=== PATIENT | male | born 1940 | race African-American/Black ===

== ENCOUNTER 2016-11-15 22:13 | Observation (INO) | payer MEDICARE, OTHER ==
[~2016-11-15] VITALS: Ht 175.3 cm; Wt 59.1 kg
[~2016-11-15 22:13] MED LIST: ADJUST ALUMINUM1 MI1; HYDR-3533 PO; IBUP-232 PO; MEDR4PAK PO; MULTTAB67 PO; NAPR500 PO; OMEP20TA PO; ROBA750T PO; [UNRECOGNIZED DRUG - CODE] PO
[2016-11-15 22:15] VITALS: BP 178/79; PULSE 67; RESP 16; TEMP 97.9; O2SAT 98
[2016-11-16] VITALS (7 sets, daily range): BP systolic 135–169; BP diastolic 69–87; PULSE 66–89; RESP 17–18; TEMP 95.8–98.7; O2SAT 91–99
[2016-11-16] MEDS ORDERED: ONDANSETRON HCL 4 MG/2 ML VIAL IV ONE (02:15)
[2016-11-16] MEDS ORDERED: HYDROmorphone HCL PF 1 MG/ML VIAL IV PUSH ONE (02:15)
[2016-11-16] MEDS ORDERED: SODIUM CHLOR 0.9% 1000 ML INJ 1,000 ML IV ONE (02:15)
--- NOTE | 2016-11-16 02:25 | PD ---
HPI Chief Complaint: GI Complaint Time Seen by Provider: 01:17 Travel History International Travel<30 days: No Contact w/Intl Traveler<30days: No Traveled to known affect area: No History of Present Illness HPI The patient is a 76 year old male who presents to the [facility] emergency department with a history of abdominal pain that reportedly began 2 days ago. He reports that the pain has been constant and is in the right upper quadrant of the abdomen and midepigastric area. He reports that he's had nausea and vomiting too many times to count over the last 24 hours. He denies having any diarrhea. His last bowel movement was earlier today. He denies having any blood in his stool or black or tarry stools. He denies ever having colonoscopy previously. He reports that he's had a subjective fever. He denies having any chest pain, chest pressure, or shortness of breath. The patient does report that he continues to smoke 4 cigarettes per day and does have a history of COPD. He also drinks 2-1/2 beers daily. The patient denies ever having a pain like this previously. He denies ever having a history of pancreatitis. The patient denies any recent fevers cough, congestion, neck pain, urinary symptoms , or neurologic symptoms. [facility] Past Medical History Narrative Medical The patient's past medical history is significant for seizure disorder, anxiety disorder, acid reflux, arthritis, COPD, chronic back pain, tobacco abuse, daily alcohol use. The patient reports that his primary care physician is Dr. Cano. Arthritis: Yes Asthma: No Atrial Fibrillation: No Blood Disorders: No Anxiety: Yes Depression: No Cancer: No Cardiovascular Problems: No Chemotherapy: No Chest Pain: No Congestive Heart Failure: No COPD: Yes Cerebrovascular Accident: No Coronary Artery Disease: No Diabetes: No Diminished Hearing: No Endocrine: Yes Gastrointestinal Disorders: Yes (GERD) GERD: Yes Genitourinary: No Hypertension: Yes Immune Disorder: No Musculoskeletal: Yes (chronic back pain) Neurologic: No Psychiatric: No Reproductive: No Respiratory: Yes Immunizations Current: Yes Radiation Therapy: No Seizures: Yes (LAST SEIZURE 2002) Sleep Apnea: No Thyroid Disease: No Past Surgical History Narrative Surgical The patient's past surgical history is significant for left knee surgery in 1963. Surgical History: No Previous Surgery Other Surgery: No Social History Alcohol Use: Yes (3-5 BEERS EVERY OTHER DAY PER PATIENT) Tobacco Use: Yes (4-5 CIGS PER DAY) Substance Use: No Allergies-Medications (Allergen,Severity, Reaction): Coded Allergies: Chicken Meat (Verified Allergy, Unknown, 11/16/16) Chicken-Derived Products (Verified Allergy, Unknown, 11/16/16) Aspirin (Verified Adverse Reaction, Intermediate, UPSET STOMACH, 11/16/16) Reported Meds & Prescriptions Reported Meds & Active Scripts Active Adjust Aluminum Cane/Roun (Device) 1 Mis Mis 1 Ea .ROUTE DIRECTED Ibuprofen 600 Mg Tab 600 Mg PO Q6H PRN Reported Naprosyn (Naproxen) 500 Mg Tab 500 Mg PO BID Omeprazole 20 Mg Tab 20 Mg PO DAILY Multiple Vitamin 1 Tab 1 Tab PO DAILY Robaxin (Methocarbamol) 750 Mg Tab 750 Mg PO Q4H Lortab (Hydrocodone-Acetaminophen) 5-325 Mg Tab 1 Tab PO Q6H PRN Lodine (Etodolac) 400 Mg Tab 400 Mg PO BID Review of Systems Except as stated in HPI: all other systems reviewed are Neg General / Constitutional: No: Fever Eyes: No: Visual changes HENT: No: Headaches Cardiovascular: No: Chest Pain or Discomfort, Dyspnea on exertion Respiratory: No: Shortness of Breath Gastrointestinal: Positive: Nausea, Vomiting, Abdominal Pain, No: Diarrhea, Hematemesis, Hematochezia, Constipation, Changes in Bowel Habits, Indigestion, Loss of Appetite Genitourinary: No: Dysuria Musculoskeletal: No: Pain Skin: No Rash Neurologic: No: Weakness Psychiatric: No: Depression Endocrine: No: Polydipsia Hematologic/Lymphatic: No: Easy Bruising Physical Exam Narrative General: The patient is a well-developed well-nourished male, uncomfortable appearing on examination, holding his upper abdomen. Head and Neck exam: Head is normocephalic atraumatic. Eyes: EOMI, pupils are equal round and reactive to light. Nose: Midline septum with pink mucous membranes Mouth: Dentition unremarkable. Moist mucus membranes. Posterior oropharynx is not erythematous. No tonsillar hypertrophy. Uvula midline. Airway patent. Neck: No palpable lymphadenopathy. No nuchal rigidity. No thyromegaly. Cardiovascular: Regular rate and rhythm without murmurs, gallops, or rubs. Lungs: Clear to auscultation bilaterally. No wheezes, rhonchi, or rales. Abdomen: Soft, tenderness on palpation in the midepigastric area and right upper quadrant of the abdomen. No other tenderness on palpation of the other quadrants of the abdomen. No guarding, rebound, or rigidity. No tenderness on palpation of McBurney's point. The patient has a positive Miller sign. Extremities: No clubbing, cyanosis, or edema. 2+ pulses in all 4 extremities. No calf tenderness on palpation. Back: No spinous process tenderness to palpation. No costovertebral angle tenderness to palpation. Neurologic Exam: Grossly nonfocal. Skin Exam: No rash noted. Intact skin that is warm and dry. Data Data Last Documented VS Vital Signs Date Time Temp Pulse Resp B/P Pulse Ox O2 Delivery O2 Flow Rate FiO2 11/15/16 22:15 97.9 67 16 178/79 98 Room Air Orders Electrocardiogram (11/16/16 01:47) Complete Blood Count With Diff (11/16/16 01:47) Comprehensive Metabolic Panel (11/16/16 01:47) B-Type Natriuretic Peptide (11/16/16 01:47) Prothrombin Time / Inr (Pt) (11/16/16 01:47) Act Partial Throm Time (Ptt) (11/16/16 01:47) C-Reactive Protein (Crp) (11/16/16 01:47) Lipase (11/16/16 01:47) Urinalysis - C+S If Indicated (11/16/16 01:47) Magnesium (Mg) (11/16/16 01:47) Chest, Single Ap (11/16/16 01:47) Ct Abd/Pel W Iv Contrast(Rout) (11/16/16 01:47) Iv Access Insert/Monitor (11/16/16 01:47) Ecg Monitoring (11/16/16 01:47) Oximetry (11/16/16 01:47) Lactic Acid Sepsis Protocol (11/16/16 01:47) Us Abdomen Gallbladder (11/16/16 02:09) Sodium Chlor 0.9% 1000 Ml Inj (Ns 1000 M (11/16/16 02:15) Ondansetron Inj (Zofran Inj) (11/16/16 02:15) Hydromorphone Pf Inj (Dilaudid Pf Inj) (11/16/16 02:15) Iohexol 350 Inj (Omnipaque 350 Inj) (11/16/16 03:13) Piperacil-Tazo 3.375 Gm Premix (Zosyn 3. (11/16/16 05:00) Admit Order (Ed Use Only) (11/16/16 04:53) Labs Laboratory Tests Test 11/16/16 11/16/16 11/16/16 02:20 02:22 02:50 White Blood Count 6.9 TH/MM3 Red Blood Count 3.96 MIL/MM3 Hemoglobin 13.0 GM/DL Hematocrit 38.7 % Mean Corpuscular Volume 97.6 FL Mean Corpuscular Hemoglobin 32.7 PG Mean Corpuscular Hemoglobin 33.5 % Concent Red Cell Distribution Width 14.6 % Platelet Count 304 TH/MM3 Mean Platelet Volume 9.1 FL Neutrophils (%) (Auto) 82.9 % Lymphocytes (%) (Auto) 10.9 % Monocytes (%) (Auto) 5.5 % Eosinophils (%) (Auto) 0.2 % Basophils (%) (Auto) 0.5 % Neutrophils # (Auto) 5.7 TH/MM3 Lymphocytes # (Auto) 0.7 TH/MM3 Monocytes # (Auto) 0.4 TH/MM3 Eosinophils # (Auto) 0.0 TH/MM3 Basophils # (Auto) 0.0 TH/MM3 CBC Comment DIFF FINAL Differential Comment Prothrombin Time 10.0 SEC Prothromb Time International 0.9 RATIO Ratio Activated Partial 26.2 SEC Thromboplast Time Sodium Level 137 MEQ/L Potassium Level 3.6 MEQ/L Chloride Level 101 MEQ/L Carbon Dioxide Level 22.2 MEQ/L Anion Gap 14 MEQ/L Blood Urea Nitrogen 9 MG/DL Creatinine 0.80 MG/DL Estimat Glomerular Filtration 114 ML/MIN Rate Random Glucose 78 MG/DL Calcium Level 9.8 MG/DL Magnesium Level 2.0 MG/DL Total Bilirubin 1.8 MG/DL Aspartate Amino Transf 203 U/L (AST/SGOT) Alanine Aminotransferase 58 U/L (ALT/SGPT) Alkaline Phosphatase 238 U/L C-Reactive Protein 2.10 MG/DL B-Type Natriuretic Peptide 71 PG/ML Total Protein 9.1 GM/DL Albumin 3.9 GM/DL Lipase 221 U/L Lactic Acid Level 0.9 mmol/L Urine Color YELLOW Urine Turbidity CLEAR Urine pH 5.5 Urine Specific [place] 1.019 Urine Protein 30 mg/dL Urine Glucose (UA) NEG mg/dL Urine Ketones 150 mg/dL Urine Occult Blood NEG Urine Nitrite NEG Urine Bilirubin NEG Urine Urobilinogen 2.0 MG/DL Urine Leukocyte Esterase NEG Urine RBC 1 /hpf Urine WBC 1 /hpf Urine Squamous Epithelial <1 /hpf Cells Urine Mucus FEW /lpf Microscopic Urinalysis Comment CULT NOT INDICATED MDM Medical Decision Making Medical Screen Exam Complete: Yes Emergency Medical Condition: Yes Medical Record Reviewed: Yes Interpretation(s) Last Impressions Gall Bladder Ultrasound 11/16/16 0209 Signed Impressions: Service Date/Time: Wednesday, November 16, 2016 02:44 - CONCLUSION: 1. Small amount sludge involving the gallbladder. There is a rounded echogenic structure either related to a noncalcified stone or sludgeball also noted. No gallbladder wall thickening or pericholecystic fluid. Nicola Steele Jr., MD Chest X-Ray 11/16/16146 Signed Impressions: Service Date/Time: Wednesday, November 16, 2016 01:44 - CONCLUSION: Normal examination. Nicola Steele Jr., MD Abdomen/Pelvis CT 11/16/16146 Signed Impressions: Service Date/Time: Wednesday, November 16, 2016 03:11 - CONCLUSION: 1. No acute abnormality. 2. Small gallstone versus gallbladder sludge. 3. Trace amount of free fluid deep within the pelvis. 4. Scattered colonic diverticuli without acute inflammation. 5. Mild thickening of urinary bladder wall. This likely relates to trabeculation from a component of bladder outlet obstruction. Nicola Steele Jr., MD Cholangiopancreatography MRI 11/16/16 0000 Signed Impressions: Service Date/Time: Wednesday, November 16, 2016 10:01 - CONCLUSION: 1. There is thickening of the gallbladder wall with pericholecystic fluid suggesting cholecystitis. There are small gallstones in the dependent portion of the gallbladder. This would suggest possible cholecystitis. 2. The intrahepatic ducts, proper hepatic ducts and common bile duct are normal in caliber. Wong Tesfaye MD Differential Diagnosis Acute cholecystitis, versus biliary colic, versus acute pancreatitis, versus diverticulitis, versus peptic ulcer disease, versus appendicitis, versus ischemic bowel Narrative Course During the course of the patients emergency department visit, the patients history, examination, and differential diagnosis were reviewed with the patient. The patient had IV access obtained and blood work sent for analysis. The patient was placed on a lunchroom monitor with oximetry and blood pressure monitoring. An EKG was ordered. A CT scan of the abdomen and pelvis was ordered The patient was provided normal saline 1 L IV fluid bolus, Zofran 4 mg IV, hydromorphone 0.5 mg IV. The patients laboratory studies were reviewed and remarkable for a white count of 6.9, hemoglobin 13, platelets 304 with 82.9 neutrophils, CMP is remarkable for total bilirubin of 1.8, AST is 203, alkaline phosphatase 238, C-reactive protein 2.1, total protein 9.1, BNP is 71, lactic acid 0.9, PT PTT unremarkable. Urinalysis shows 150 ketones, protein 30, chest x-ray shows no acute abnormality. Ultrasound of the right upper quadrant reveals a small amount of sludge involving the gallbladder there is a rounded echogenic structure either related to a noncalcified stone or sludge ball. No gallbladder wall thickening or pericholecystic fluid. CT scan of the abdomen and pelvis shows no acute abnormality, small gallstones versus gallbladder sludge. Trace amount of free fluid deep within the pelvis, Scattered diverticuli without acute inflammation, mild thickening of the urinary bladder wall. Based on the patient's examination, the patient's symptoms are suspicious for acute cholecystitis. The patient will be admitted to the hospital for continued evaluation and treatment. To cover for possible acute cholecystitis, the patient was given Zosyn 3.375 g IV. The patients results were discussed with the patient, including the plan of care. I explained that further testing and/ or monitoring is indicated based on the patients history, examination, and/ or laboratory findings. Therefore, I recommended admission for additional evaluation. The patient expressed understanding and was agreeable with this plan. The patient was admitted to the hospital in stable condition and sent to a bed under the care of the [facility] service. Physician Communication Physician Communication The patient's case is discussed with Dr. Friedman who did agree to admit the patient for further evaluation and treatment at this time. Diagnosis Primary Impression: Abdominal pain Qualified Code: R10.11 - Right upper quadrant abdominal pain Additional Impression: Gallstones Admitting Information Admitting Physician Requests: Consuelo Arreguin MD Nov 16, 2016 02:25
[2016-11-16 02:32] LABS: AUTOMATED NEUTROPHIL # 5.7 TH/MM3 (1.8-7.7); BASOPHIL % 0.5 % (0.0-2.0); EOSINOPHIL % 0.2 % (0.0-4.0); HEMATOCRIT 38.7 % (39.0-51.0); HEMO FLAGS DIFF FINAL; LYMPH % 10.9 % (9.0-44.0); LYMPHOCYTE # 0.7 TH/MM3 (1.0-4.8); MEAN CELL VOLUME 97.6 FL (80.0-100.0); MEAN CORPUSCULAR HEMOGLOBIN 32.7 PG (27.0-34.0); MEAN CORPUSCULAR HGB CONC 33.5 % (32.0-36.0); MONO % 5.5 % (0.0-8.0); NEUT % 82.9 % (16.0-70.0); PLATELET COUNT 304 TH/MM3 (150-450); RED BLOOD COUNT 3.96 MIL/MM3 (4.50-5.90); RED CELL DISTRIBUTION WIDTH 14.6 % (11.6-17.2); WHITE BLOOD COUNT 6.9 TH/MM3 (4.0-11.0)
--- NOTE | 2016-11-16 02:35 | RADRPT ---
EXAM DATE/TIME: 11/16/2016 01:44 [facility] COMPARISON: CHEST SINGLE AP, October 06, 2015, 5:40. INDICATIONS : Nausea and vomiting, abdominal pain. MEDICAL HISTORY : None. SURGICAL HISTORY : None. ENCOUNTER: Initial ACUITY: 1 day PAIN SCORE: 0/10 LOCATION: Bilateral chest FINDINGS: A single view of the chest demonstrates the lungs to be symmetrically aerated without evidence of mas s, infiltrate or effusion. The cardiomediastinal contours are unremarkable. Osseous structures are intact. CONCLUSION: Normal examination. Nicola Steele Jr., MD on November 16, 2016 at 2:33 Board Certified Radiologist. This report was verified electronically.
[2016-11-16 02:45] LABS: APTT (PATIENT) 26.2 SEC (24.3-30.1); INTERNATIONAL NORMALIZED RATIO 0.9 RATIO
[2016-11-16 02:54] LABS: ALT (GPT) 58 U/L (12-78); ANION GAP 14 MEQ/L (5-15); AST (GOT) 203 U/L (15-37); BICARBONATE 22.2 MEQ/L (21.0-32.0); BLOOD UREA NITROGEN 9 MG/DL (7-18); CHLORIDE 101 MEQ/L (98-107); GLOMERULAR FILTRATION RATE 114 ML/MIN (>89); POTASSIUM 3.6 MEQ/L (3.5-5.1); SODIUM (NA) 137 MEQ/L (136-145)
[2016-11-16 02:56] LABS: ALKALINE PHOSPHATASE 238 U/L (45-117); TOTAL BILIRUBIN ADULT 1.8 MG/DL (0.2-1.0)
[2016-11-16 03:03] LABS: BLOOD, URINE NEG (NEG); COMMENT (UR) CULT NOT INDICATED; CULTURE IF INDICATED CULT NOT INDICATED; GLUCOSE,URINE NEG (NEG); KETONE, URINE 150 mg/dL (NEG); MUCUS URINE FEW /lpf (OCC); NITRITE,URINE NEG (NEG); PH, URINE 5.5 (5.0-8.5); SQUAMOUS EPITHELIAL CELL URINE <1 /hpf (0-5); URINE COLOR YELLOW (YELLW/STRAW)
[2016-11-16] MEDS ORDERED: IOHEXOL 350 MG/ML 10 ML VIAL (for RAD DIAG) IV ONE (03:13)
--- NOTE | 2016-11-16 03:57 | RADRPT ---
EXAM DATE/TIME: 11/16/2016 02:44 [facility] COMPARISON: CT ABDOMEN & PELVIS W CONTRAST, November 16, 2016, 3:11. INDICATIONS : Right upper quadrant pain. MEDICAL HISTORY : Hypertension. Chronic obstructive pulmonary disease. GERD. SURGICAL HISTORY : Left knee surgery 1964. ENCOUNTER: Initial ACUITY: 1 week PAIN SCORE: 6/10 LOCATION: Right upper quadrant MEASUREMENTS: LIVER: 14.1 cm length COMMON DUCT: 5 mm RIGHT KIDNEY: 10.3 x 4.6 x 5.1 cm FINDINGS: LIVER: Normal echotexture without focal lesion or ductal dilatation. COMMON DUCT: No intraluminal mass or stone visualized. GALLBLADDER: The gallbladder is without wall thickening or pericholecystic fluid. A small amount sludge is seen wi thin the gallbladder. An 11 mm echogenic non-shadowing structure is seen within the dependent portion of the gallbladder. PANCREAS: The visualized portions are within normal limits. RIGHT KIDNEY: No evidence of hydronephrosis, stone, or mass. CONCLUSION: 1. Small amount sludge involving the gallbladder. There is a rounded echogenic structure either relat ed to a noncalcified stone or sludgeball also noted. No gallbladder wall thickening or pericholecysti c fluid. Nicola Steele Jr., MD on November 16, 2016 at 3:53 Board Certified Radiologist. This report was verified electronically.
--- NOTE | 2016-11-16 04:00 | RADRPT ---
EXAM DATE/TIME: 11/16/2016 03:11 [facility] COMPARISON: No previous studies available for comparison. INDICATIONS : Diffuse abdominal pain with nausea and vomiting. IV CONTRAST: 95 cc Omnipaque 350 (iohexol) IV ORAL CONTRAST: No oral contrast ingested. RADIATION DOSE: 4.52 CTDIvol (mGy) MEDICAL HISTORY : Seizures. Gastroesophageal reflux disease. Chronic obstructive pulmonary disease.Hypertension. SURGICAL HISTORY : None. ENCOUNTER: Initial ACUITY: 1 day PAIN SCALE: 4/10 LOCATION: Bilateral abdomen TECHNIQUE: Volumetric scanning of the abdomen and pelvis was performed. Using automated exposure control and ad justment of the mA and/or kV according to patient size, radiation dose was kept as low as reasonably achievable to obtain optimal diagnostic quality images. FINDINGS: LOWER LUNGS: The visualized lower lungs are clear. LIVER: Homogeneous density without lesion. There is no dilation of the biliary tree. A small rounded echoge john focus without calcification seen within the dependent portion of the gallbladder. SPLEEN: Normal size without lesion. Small granulomatous calcifications. PANCREAS: Within normal limits. KIDNEYS: Normal in size and shape. There is no mass, stone or hydronephrosis. ADRENAL GLANDS: Within normal limits. VASCULAR: There is no aortic aneurysm. BOWEL/MESENTERY: The stomach, small bowel, and colon demonstrate no acute abnormality. There is no free intraperitone al air. Trace amount of free fluid deep within the pelvis. Scattered colonic diverticuli without acut e inflammation. ABDOMINAL WALL: Within normal limits. RETROPERITONEUM: There is no lymphadenopathy. BLADDER: Mild wall thickening of the urinary bladder. No discrete mass. REPRODUCTIVE: Within normal limits. INGUINAL: There is no lymphadenopathy or hernia. MUSCULOSKELETAL: Within normal limits for patient age. CONCLUSION: 1. No acute abnormality. 2. Small gallstone versus gallbladder sludge. 3. Trace amount of free fluid deep within the pelvis. 4. Scattered colonic diverticuli without acute inflammation. 5. Mild thickening of urinary bladder wall. This likely relates to trabeculation from a component of bladder outlet obstruction. Nicola Steele Jr., MD on November 16, 2016 at 3:55 Board Certified Radiologist. This report was verified electronically.
[2016-11-16] MEDS ORDERED: FLUMAZENIL 0.5 MG/5 ML VIAL IV PUSH PRN (05:00)
[2016-11-16] MEDS ORDERED: HALOPERIDOL LACTATE 5 MG/ML AMP IM PRN (05:00)
[2016-11-16] MEDS ORDERED: LORazepam 2 MG TAB PO PRN (05:00)
[2016-11-16] MEDS ORDERED: ACETAMINOPHEN 325 MG TAB PO PRN (05:00)
[2016-11-16] MEDS ORDERED: LORazepam 2 MG/ML VIAL IV PUSH PRN ×4 (05:00)
[2016-11-16] MEDS ORDERED: SODIUM CHLORIDE 0.9% FLUSH 10 ML FLUSH IV FLUSH PRN (05:00)
[2016-11-16] MEDS ORDERED: ONDANSETRON HCL 4 MG/2 ML VIAL IVP PRN (05:00)
[2016-11-16] MEDS ORDERED: RESP: ALBUTEROL 2.5 MG/IPRATROPIUM 0.5 MG NEB (PRN) NEB (05:00)
[2016-11-16] MEDS ORDERED: BISACODYL 10 MG SUPP RECTAL PRN (05:00)
[2016-11-16] MEDS ORDERED: LORazepam 1 MG TAB PO PRN (05:00)
[2016-11-16] MEDS ORDERED: MORPHINE SULFATE 4 MG/ML INJ IV PRN (05:00)
[2016-11-16] MEDS ORDERED: PIPERACIL-TAZO 3.375 GM PREMIX 50 ML IV ONE (05:00)
--- NOTE | 2016-11-16 05:12 | HHI.HP ---
[facility] Service [facility] Primary Care Physician Peg Cano MD Admission Diagnosis intractable abdominal pain with vomiting, r/o acute cholecystitis Diagnoses: (1) Intractable nausea and vomiting Diagnosis: Principal (2) Intractable abdominal pain Diagnosis: Principal (3) Gallbladder sludge Diagnosis: Principal (4) Elevated LFTs Diagnosis: Principal (5) COPD (chronic obstructive pulmonary disease) Diagnosis: Principal (6) Alcohol dependence, daily use Diagnosis: Principal (7) Tobacco abuse Diagnosis: Principal Travel History International Travel<30 Days: No Contact w/Intl Traveler <30 Da: No Traveled to Known Affected Are: No History of Present Illness A 76-year-old male with a PMH of Anxiety, HTN, COPD, Tobacco Abuse and Daily Alcohol Use who presented to the ER with complaints of RUQ pain x2 days. Reports associated nausea and vomiting w/ decreased PO intake. Denies fever, chills or diarrhea. No h/o similar symptoms in the past. On arrival, BP 178/79 , HR 67, O2 sat 98% on RA, Afebrile. CBC unremarkable except for mildly elevated neutrophil count. Chemistry unremarkable. Lactic Acid 0.9. LFTs elevated, AST 203, ALT 58, ALP 238, Total Bili 1.8, CRP 2.10, Lipase 221. UA negative. CXR with no acute findings. CT Abd/Pelvis w/ no acute abnormality, small gallstones versus gallbladder sludge and trace free fluid in the pelvis, mild thickening of the urinary bladder wall. Gallbladder US with small amount of sludge in gallbladder and rounded echogenic structure, likely stone or sludge ball, no gallbladder wall thickening or pericholecystic fluid. On exam, patient does have positive Miller's sign. S/p IVF, Zosyn and Zofran in ER w/ mild improvement, however persistent n/v and pain. Review of Systems Except as stated in HPI: all other systems reviewed are Neg ROS: 14 point review of systems otherwise negative. Past Family Social History Past Medical History PAST FAMILY HISTORY: Reviewed. No h/o DM or CAD Past Surgical History PAST SOCIAL HISTORY: Negative for alcohol, tobacco or drugs. Allergies: Coded Allergies: Chicken Meat (Verified Allergy, Unknown, 11/16/16) Chicken-Derived Products (Verified Allergy, Unknown, 11/16/16) Aspirin (Verified Adverse Reaction, Intermediate, UPSET STOMACH, 11/16/16) Family History PAST FAMILY HISTORY: Reviewed. No h/o DM or CAD Social History PAST SOCIAL HISTORY: Drinks 2-3 beers daily. Smokes 5 cigarettes per day. Denies drug use. Physical Exam Vital Signs Vital Signs Date Time Temp Pulse Resp B/P Pulse Ox O2 Delivery O2 Flow Rate FiO2 11/15/16 22:15 97.9 67 16 178/79 98 Room Air Physical Exam PE: GENERAL: Pleasant elderly male in no acute distress. HEENT: PERRLA, EOMI. No scleral icterus or conjunctival pallor. No lid lag or facial droop. CARDIOVASCULAR: Regular rate and rhythm. No obvious murmurs to auscultation. No chest tenderness to palpation. RESPIRATORY: No obvious rhonchi or wheezing. Clear to auscultation. Breath sounds equal bilaterally. GASTROINTESTINAL: Abdomen soft, +RUQ tenderness to palpation, nondistended. BS normal. MUSCULOSKELETAL: Extremities without clubbing, cyanosis, or edema. No obvious deformities. NEUROLOGICAL: Awake, alert and oriented x4. No focal neurologic deficits. Moving both upper and lower extremities spontaneously. Laboratory Laboratory Tests Test 11/16/16 11/16/16 11/16/16 02:20 02:22 02:50 White Blood Count 6.9 Red Blood Count 3.96 Hemoglobin 13.0 Hematocrit 38.7 Mean Corpuscular Volume 97.6 Mean Corpuscular Hemoglobin 32.7 Mean Corpuscular Hemoglobin 33.5 Concent Red Cell Distribution Width 14.6 Platelet Count 304 Mean Platelet Volume 9.1 Neutrophils (%) (Auto) 82.9 Lymphocytes (%) (Auto) 10.9 Monocytes (%) (Auto) 5.5 Eosinophils (%) (Auto) 0.2 Basophils (%) (Auto) 0.5 Neutrophils # (Auto) 5.7 Lymphocytes # (Auto) 0.7 Monocytes # (Auto) 0.4 Eosinophils # (Auto) 0.0 Basophils # (Auto) 0.0 CBC Comment DIFF FINAL Differential Comment Prothrombin Time 10.0 Prothromb Time International 0.9 Ratio Activated Partial 26.2 Thromboplast Time Sodium Level 137 Potassium Level 3.6 Chloride Level 101 Carbon Dioxide Level 22.2 Anion Gap 14 Blood Urea Nitrogen 9 Creatinine 0.80 Estimat Glomerular Filtration 114 Rate Random Glucose 78 Calcium Level 9.8 Magnesium Level 2.0 Total Bilirubin 1.8 Aspartate Amino Transf 203 (AST/SGOT) Alanine Aminotransferase 58 (ALT/SGPT) Alkaline Phosphatase 238 C-Reactive Protein 2.10 B-Type Natriuretic Peptide 71 Total Protein 9.1 Albumin 3.9 Lipase 221 Lactic Acid Level 0.9 Urine Color YELLOW Urine Turbidity CLEAR Urine pH 5.5 Urine Specific [place] 1.019 Urine Protein 30 Urine Glucose (UA) NEG Urine Ketones 150 Urine Occult Blood NEG Urine Nitrite NEG Urine Bilirubin NEG Urine Urobilinogen 2.0 Urine Leukocyte Esterase NEG Urine RBC 1 Urine WBC 1 Urine Squamous Epithelial <1 Cells Urine Mucus FEW Microscopic Urinalysis Comment CULT NOT INDICATED Result Diagram: 11/16/1621911/16/16219 Assessment and Plan Problem List: (1) Intractable abdominal pain ICD Code: R10.9 Status: Acute (2) Intractable nausea and vomiting ICD Code: R11.2 Status: Acute (3) Gallbladder sludge ICD Code: K82.8 Status: Acute (4) Elevated LFTs ICD Code: R94.5 Status: Acute (5) COPD (chronic obstructive pulmonary disease) ICD Code: J44.9 Status: Acute (6) Alcohol dependence, daily use ICD Code: F10.20 Status: Acute (7) Tobacco abuse ICD Code: Z72.0 Status: Acute Assessment and Plan A/P: 1. Intractable Abd Pain: c/o acute onset of abdominal pain x2 days, CT Abd/ Pelvis w/ no acute findings, small gallstone vs sludge, images reviewed by me. +RUQ tenderness on exam. Continue w/ analgesics/antiemetics, IVF for hydration. Lipase normal. 2. Intractable N/V: w/ decreased PO intake, IVF for hydration, antiemetics. U /a negative for UTI. 3. Gallbladder Sludge: Gallbladder US w/ sludge, noncalcified stone vs sludgeball however no wall thickening, images reviewed by me, +Christiano's on exam , concern for cholecystitis. Consult Gen Sx for routine eval. Afebrile, no leukocytosis however elevated neutrophil count, s/p Zosyn IV in ER, will continue w/ IV Abx. 4. Elevated LFTs: new in comparison to labs from 10/07/15, AST 203, ALT 58, ALP 238, Total Bili 1.8. Repeat labs in am. 5. COPD: Chronic Respiratory Failure. Stable. DuoNeb prn. 6. Alcohol Dependence: Drinks 2-3 beers/day, denies withdrawal. Seizure Precautions, MVT/Thiamine/Folate replacement, CIWA as needed for withdrawal. 7. Tobacco Abuse: Counselled. Ativan prn. 8. DVT Prophylaxis: SCD/Teds. 9. Social work for d/c planning as needed. 10. Case discussed w/ ER physician at length. Roz Friedman MD Nov 16, 2016 05:12
[2016-11-16] MEDS: SODIUM CHLOR 0.9% 1000 ML INJ 1,000 ML IV SCH ×3 (05:17→22:04)
[2016-11-16] MEDS: PANTOPRAZOLE SODIUM 40 MG VIAL IV PUSH SCH ×2 (05:30→17:06)
[2016-11-16] MEDS: THIAMINE INJ 100 MG in SODIUM CHLORIDE 0.9% INJ 100 ML IV SCH (08:05)
[2016-11-16] MEDS: SODIUM CHLORIDE 0.9% FLUSH 10 ML FLUSH IV FLUSH SCH ×2 (09:00→19:15)
[2016-11-16] MEDS: MULTIVITAMIN INJ 10 ML, FOLIC ACID INJ 1 MG in SODIUM CHLORID 0.9% 500 ML INJ 500 ML IV SCH (09:22)
--- NOTE | 2016-11-16 09:47 | HHI.PR ---
Subjective Remarks Follow up for RUQ pain, N/V, possible cholecystitis. The patient is seen just prior to going for MRCP. He reports his abdominal pain has completely resolved. No further episodes of nausea or vomiting. He is hungry and wants to eat. Denies any fevers/chills. Bowel movements have been normal. He has no other medical complaints at this time. Objective Vitals Vital Signs Date Time Temp Pulse Resp B/P Pulse Ox O2 Delivery O2 Flow Rate FiO2 11/16/16 07:37 97.5 72 17 138/69 97 11/16/16 06:23 98.7 83 18 169/87 91 11/16/16 05:17 69 18 163/77 99 Room Air 11/15/16 22:15 97.9 67 16 178/79 98 Room Air Result Diagram: 11/16/16 02211/16/16219 Imaging Last Impressions Gall Bladder Ultrasound 11/16/16208 Signed Impressions: Service Date/Time: Wednesday, November 16, 2016 02:44 - CONCLUSION: 1. Small amount sludge involving the gallbladder. There is a rounded echogenic structure either related to a noncalcified stone or sludgeball also noted. No gallbladder wall thickening or pericholecystic fluid. Nicola Steele Jr., MD Chest X-Ray 11/16/16146 Signed Impressions: Service Date/Time: Wednesday, November 16, 2016 01:44 - CONCLUSION: Normal examination. Nicola Steele Jr., MD Abdomen/Pelvis CT 11/16/16146 Signed Impressions: Service Date/Time: Wednesday, November 16, 2016 03:11 - CONCLUSION: 1. No acute abnormality. 2. Small gallstone versus gallbladder sludge. 3. Trace amount of free fluid deep within the pelvis. 4. Scattered colonic diverticuli without acute inflammation. 5. Mild thickening of urinary bladder wall. This likely relates to trabeculation from a component of bladder outlet obstruction. Nicola Steele Jr., MD Objective Remarks GENERAL: Well-nourished, well-developed pleasant elderly male patient in [facility]. SKIN: Warm and dry. No rash. HEENT: Normocephalic. Atraumatic. Pupils equal and round. No scleral icterus. No injection or drainage. Mucous membranes pink and moist. NECK: Supple. Trachea midline. CARDIOVASCULAR: Regular rate and rhythm. S1, S2 noted. No murmur appreciated. RESPIRATORY: No accessory muscle use. Clear to auscultation. Breath sounds equal bilaterally. GASTROINTESTINAL: Abdomen soft, non-tender, nondistended. Normoactive bowel sounds x4. MUSCULOSKELETAL: No obvious deformities. Extremities without clubbing, cyanosis , or edema. NEUROLOGICAL: Awake and alert. No obvious cranial nerve deficits. Motor grossly within normal limits. Normal speech. PSYCHIATRIC: Appropriate mood and affect; insight and judgment normal. Medications and IVs Current Medications Medications (Trade) Dose Ordered Sig/Regulo Route Start Time Stop Time Status Last Admin Multivitamins 10 ml/Folic Acid 1 mg/Sodium Chloride 510.2 ml @ 125 mls/hr Q24H IV 11/16/16 07:00 11/21/16 06:59 11/16/16 09:22 (Thiamine Inj/NS Inj) 101 ml @ 100 mls/hr Q24H IV 11/16/16 07:00 11/19/16 06:59 11/16/16 08:05 (Vitamin B1) 100 mg DAILY PO 11/19/16 09:00 (Romazicon Inj) 0.2 mg Q1M PRN IV PUSH 11/16/16 05:00 (Ativan) 1 mg Q4H PRN PO 11/16/16 05:00 (Ativan Inj) 1 mg Q4H PRN IV PUSH 11/16/16 05:00 (Ativan) 2 mg Q2H PRN PO 11/16/16 05:00 (Ativan Inj) 2 mg Q2H PRN IV PUSH 11/16/16 05:00 (Ativan Inj) 2 mg Q1H PRN IV PUSH 11/16/16 05:00 (Ativan Inj) 2 mg Q15M PRN IV PUSH 11/16/16 05:00 (Haldol Inj) 2 mg Q15M PRN IM 11/16/16 05:00 Pantoprazole Sodium 40 mg 40 mg Q12H IV PUSH 11/16/16 05:00 11/16/16 05:30 (NS 1000 ml Inj) 1,000 ml @ 100 mls/hr Q10H IV 11/16/16 04:53 11/16/16 05:17 (NS Flush) 2 ml UNSCH PRN IV FLUSH 11/16/16 05:00 (NS Flush) 2 ml BID IV FLUSH 11/16/16 09:00 (Zofran Inj) 4 mg Q6H PRN IVP 11/16/16 05:00 (Dulcolax Supp) 10 mg DAILY PRN RECTAL 11/16/16 05:00 (Tylenol) 650 mg Q6H PRN PO 11/16/16 05:00 (Morphine Inj) 4 mg Q3H PRN IV 11/16/16 05:00 Oxycodone HCl 5 mg 5 mg Q4H PRN PO 11/16/16 05:00 (Zosyn 4.5 Gm Premix) 100 ml @ 200 mls/hr Q6H IV 11/16/16 11:00 Urinary Catheter: No Vascular Central Line Catheter: No A/P Problem List: (1) Intractable abdominal pain ICD Code: R10.9 Status: Acute (2) Intractable nausea and vomiting ICD Code: R11.2 Status: Acute (3) Gallbladder sludge ICD Code: K82.8 Status: Acute (4) Elevated LFTs ICD Code: R94.5 Status: Acute (5) COPD (chronic obstructive pulmonary disease) ICD Code: J44.9 Status: Acute (6) Alcohol dependence, daily use ICD Code: F10.20 Status: Acute (7) Tobacco abuse ICD Code: Z72.0 Status: Acute Assessment and Plan 76-year-old male with a PMH of Anxiety, HTN, COPD, Tobacco Abuse and Daily Alcohol Use who presented to the ER with complaints of RUQ pain x2 days with associated nausea and vomiting w/ decreased PO intake. Intractable Abd Pain with N/V, Decreased po intake: c/o acute onset of abdominal pain x2 days, CT Abd/Pelvis w/ no acute findings, small gallstone vs sludge, images reviewed by me. U/a negative for UTI. +RUQ tenderness on exam. Continue w/ analgesics/antiemetics, IVF for hydration. Lipase normal. Symptoms improving. Gallbladder Sludge: Gallbladder US w/ sludge, noncalcified stone vs sludgeball however no wall thickening, images reviewed by me, +Miller's on exam, concern for cholecystitis. Consult Gen Sx for eval. Afebrile, no leukocytosis however elevated neutrophil count, s/p Zosyn IV in ER, will continue w/ IV Abx. MRCP ordered. Elevated LFTs: new in comparison to labs from 10/07/15, AST 203, ALT 58, ALP 238 , Total Bili 1.8. Repeat labs in am. COPD: Chronic Respiratory Failure. Stable. DuoNeb prn. Alcohol Dependence: Drinks 2-3 beers/day, denies withdrawal. Seizure Precautions, MVT/Thiamine/Folate replacement, CIWA as needed for withdrawal. Tobacco Abuse: Counselled. Ativan prn. DVT Prophylaxis: SCD/Teds. Ayanna Pedroza PA-C Nov 16, 2016 9:47 am
--- NOTE | 2016-11-16 10:31 | EKG ---
Date Performed: 11/16/2016 Time Performed: 05:48:17 PTAGE: 76 years EKG: Sinus rhythm POSSIBLE LEFT ATRIAL ENLARGEMENT BORDERLINE ECG PREVIOUS TRACING : 10/06/2015 12.23 DOCTOR: Santo Higginbotham Interpretating Date/Time 11/16/2016 10:30:01
--- NOTE | 2016-11-16 11:05 | RADRPT ---
EXAM DATE/TIME: 11/16/2016 10:01 [place] COMPARISON: US ABDOMEN - GALLBLADDER, November 16, 2016, 2:44. CT ABDOMEN & PELVIS W CONTRAST, November 16, 2016, 3:11 . INDICATIONS : Abdominal pain. MEDICAL HISTORY : Hypertension. Gastroesophageal reflux disease. Seizures. SURGICAL HISTORY : Left knee surgery. ENCOUNTER: Initial ACUITY: 2 day PAIN SCORE: 3/10 LOCATION: abdomen TECHNIQUE: Multiplanar, multisequence magnetic resonance imaging of the abdomen was performed. High-resolution 3D dataset was utilized to reconstruct maximum-intensity projection (MIP) images. FINDINGS: The intrahepatic ducts, proper hepatic ducts and the common bile duct are normal in caliber. No filli ng defects are identified. The examination demonstrates several small gallstones within the dependent portion of the gallbladder . There is fairly diffuse gallbladder wall thickening and a small amount of pericolic cystic fluid. The spleen, pancreas, adrenal glands and kidneys are grossly unremarkable in appearance. No retroperi toneal adenopathy is seen. CONCLUSION: 1. There is thickening of the gallbladder wall with pericholecystic fluid suggesting cholecystitis. T here are small gallstones in the dependent portion of the gallbladder. This would suggest possible ch olecystitis. 2. The intrahepatic ducts, proper hepatic ducts and common bile duct are normal in caliber. Wong Tesfaye MD on November 16, 2016 at 10:49 Board Certified Radiologist. This report was verified electronically.
[2016-11-16] MEDS: PIPERACIL-TAZO 4.5 GM PREMIX 100 ML IV SCH ×3 (11:28→22:04)
--- NOTE | 2016-11-16 16:17 | PD.CONS ---
cc: Morgan Dickerson MD HPI Service General Surgery Consult Requested By Dr. Julian Reason for Consult Evaluation for acute cholecystitis Primary Care Physician Peg Cano MD History of Present Illness This is a 76 year old male with no past medical history or surgical history who has had abdominal pain with associated nausea and vomiting for the past two days. He complains of RIGHT upper quadrant abdominal pain. The pain is a 8/10, currently 7/10, sharp, constant, worse pain yet, non radiating, better with sitting still. The patient denies fever. The patient has a decrease in PO intake during this time. A CT of the abdomen/pelvis was done and showed gall stone vs sludge. An gallbladder ultrasound showed sludge within the gallbladder. An MRCP was obtained and showed thickening of the gallbladder wall and pop-cholecystic fluid. The common bile duct was normal. The patient desires to avoid surgery at this time. A General Surgery evaluation was requested. Review of Systems Constitutional: COMPLAINS OF: Fatigue, DENIES: Fever, Chills Endocrine: DENIES: Polydipsia, Polyuria, Polyphagia Eyes: DENIES: Blurred vision, Diplopia Ears, nose, mouth, throat: DENIES: Hearing loss, Vertigo Respiratory: DENIES: Cough, Snoring Cardiovascular: DENIES: Chest pain, Palpitations, Syncope Gastrointestinal: COMPLAINS OF: Abdominal pain (RUQ pain ), Nausea, Vomiting Genitourinary: DENIES: Urgency, Hematuria Musculoskeletal: DENIES: Joint pain Integumentary: DENIES: Abnormal pigmentation Hematologic/lymphatic: DENIES: Bruising Immunologic/allergic: DENIES: Eczema Neurologic: DENIES: Headache, Localized weakness Psychiatric: DENIES: Confusion, Mood changes, Depression Past Family Social History Past Medical History None Past Surgical History PAPITO knee surgery in the 1960s Reported Medications See chart Allergies: Coded Allergies: Chicken Meat (Verified Allergy, Unknown, 11/16/16) Chicken-Derived Products (Verified Allergy, Unknown, 11/16/16) Aspirin (Verified Adverse Reaction, Intermediate, UPSET STOMACH, 11/16/16) Active Ordered Medications Current Medications Medications (Trade) Dose Ordered Sig/Regulo Route Start Time Stop Time Status Last Admin Multivitamins 10 ml/Folic Acid 1 mg/Sodium Chloride 510.2 ml @ 125 mls/hr Q24H IV 11/16/16 07:00 11/21/16 06:59 11/16/16 09:22 (Thiamine Inj/NS Inj) 101 ml @ 100 mls/hr Q24H IV 11/16/16 07:00 11/19/16 06:59 11/16/16 08:05 (Vitamin B1) 100 mg DAILY PO 11/19/16 09:00 (Romazicon Inj) 0.2 mg Q1M PRN IV PUSH 11/16/16 05:00 (Ativan) 1 mg Q4H PRN PO 11/16/16 05:00 (Ativan Inj) 1 mg Q4H PRN IV PUSH 11/16/16 05:00 (Ativan) 2 mg Q2H PRN PO 11/16/16 05:00 (Ativan Inj) 2 mg Q2H PRN IV PUSH 11/16/16 05:00 (Ativan Inj) 2 mg Q1H PRN IV PUSH 11/16/16 05:00 (Ativan Inj) 2 mg Q15M PRN IV PUSH 11/16/16 05:00 (Haldol Inj) 2 mg Q15M PRN IM 11/16/16 05:00 Pantoprazole Sodium 40 mg 40 mg Q12H IV PUSH 11/16/16 05:00 11/16/16 05:30 (NS 1000 ml Inj) 1,000 ml @ 100 mls/hr Q10H IV 11/16/16 04:53 11/16/16 05:17 (NS Flush) 2 ml UNSCH PRN IV FLUSH 11/16/16 05:00 (NS Flush) 2 ml BID IV FLUSH 11/16/16 09:00 (Zofran Inj) 4 mg Q6H PRN IVP 11/16/16 05:00 (Dulcolax Supp) 10 mg DAILY PRN RECTAL 11/16/16 05:00 (Tylenol) 650 mg Q6H PRN PO 11/16/16 05:00 (Morphine Inj) 4 mg Q3H PRN IV 11/16/16 05:00 Oxycodone HCl 5 mg 5 mg Q4H PRN PO 11/16/16 05:00 (Zosyn 4.5 Gm Premix) 100 ml @ 200 mls/hr Q6H IV 11/16/16 11:00 11/16/16 11:28 Family History Non-contributory Social History Tobacco--- 2-3 cigarette daily ETOH-- 1-3 beers daily Denies illicit drug use Physical Exam Vital Signs Vital Signs Date Time Temp Pulse Resp B/P Pulse Ox O2 Delivery O2 Flow Rate FiO2 11/16/16 15:34 96.4 68 18 135/77 97 11/16/16 11:32 95.8 66 17 139/70 98 11/16/16 09:00 89 11/16/16 07:37 97.5 72 17 138/69 97 11/16/16 06:23 98.7 83 18 169/87 91 11/16/16 05:17 69 18 163/77 99 Room Air 11/15/16 22:15 97.9 67 16 178/79 98 Room Air Physical Exam GENERAL: Elderly male resting in bed. SKIN: Warm and dry. HEAD: Atraumatic. Normocephalic. EYES: Pupils equal and round. No scleral icterus. No injection or drainage. ENT: No nasal bleeding or discharge. Mucous membranes pink and moist. NECK: Trachea midline. CARDIOVASCULAR: Regular rate and rhythm. RESPIRATORY: No accessory muscle use. Clear to auscultation. Breath sounds equal bilaterally. GASTROINTESTINAL: Abdomen soft, non-tender, nondistended. Of note: no RUQ abdominal pain. MUSCULOSKELETAL: Extremities without clubbing, cyanosis, or edema. No obvious deformities. NEUROLOGICAL: Awake and alert. No obvious cranial nerve deficits. Motor grossly within normal limits. Five out of 5 muscle strength in the arms and legs. Normal speech. PSYCHIATRIC: Appropriate mood and affect; insight and judgment normal. Laboratory Laboratory Tests Test 11/16/16 11/16/16 11/16/16 02:20 02:22 02:50 White Blood Count 6.9 Red Blood Count 3.96 Hemoglobin 13.0 Hematocrit 38.7 Mean Corpuscular Volume 97.6 Mean Corpuscular Hemoglobin 32.7 Mean Corpuscular Hemoglobin 33.5 Concent Red Cell Distribution Width 14.6 Platelet Count 304 Mean Platelet Volume 9.1 Neutrophils (%) (Auto) 82.9 Lymphocytes (%) (Auto) 10.9 Monocytes (%) (Auto) 5.5 Eosinophils (%) (Auto) 0.2 Basophils (%) (Auto) 0.5 Neutrophils # (Auto) 5.7 Lymphocytes # (Auto) 0.7 Monocytes # (Auto) 0.4 Eosinophils # (Auto) 0.0 Basophils # (Auto) 0.0 CBC Comment DIFF FINAL Differential Comment Prothrombin Time 10.0 Prothromb Time International 0.9 Ratio Activated Partial 26.2 Thromboplast Time Sodium Level 137 Potassium Level 3.6 Chloride Level 101 Carbon Dioxide Level 22.2 Anion Gap 14 Blood Urea Nitrogen 9 Creatinine 0.80 Estimat Glomerular Filtration 114 Rate Random Glucose 78 Calcium Level 9.8 Magnesium Level 2.0 Total Bilirubin 1.8 Aspartate Amino Transf 203 (AST/SGOT) Alanine Aminotransferase 58 (ALT/SGPT) Alkaline Phosphatase 238 C-Reactive Protein 2.10 B-Type Natriuretic Peptide 71 Total Protein 9.1 Albumin 3.9 Lipase 221 Lactic Acid Level 0.9 Urine Color YELLOW Urine Turbidity CLEAR Urine pH 5.5 Urine Specific Beals 1.019 Urine Protein 30 Urine Glucose (UA) NEG Urine Ketones 150 Urine Occult Blood NEG Urine Nitrite NEG Urine Bilirubin NEG Urine Urobilinogen 2.0 Urine Leukocyte Esterase NEG Urine RBC 1 Urine WBC 1 Urine Squamous Epithelial <1 Cells Urine Mucus FEW Microscopic Urinalysis Comment CULT NOT INDICATED Assessment and Plan Assessment and Plan 76 year old male with acute cholecystitis -Patient does not want surgery -Continue antibiotics -Clear liquids; advance as tolerated -OOB and mobilize -Labs in the AM Attending Statement patient seen at bedside acute cholecystitis recommend surgery vs abx pt refusing surgery will continue abx and observation Attestation The exam, history, and the medical decision-making described in the above note were completed with the assistance of the mid-level provider. I reviewed and agree with the findings presented. I attest that I had a [id number] encounter with the patient on the same day, and personally performed and documented my assessment and findings in the medical record. Maggie Juarez Nov 16, 2016 16:17 Morgan Dickerson MD Nov 28, 2016 21:18
[2016-11-17] MEDS: PIPERACIL-TAZO 4.5 GM PREMIX 100 ML IV SCH (04:38)
[2016-11-17] MEDS: PANTOPRAZOLE SODIUM 40 MG VIAL IV PUSH SCH (04:38)
[2016-11-17 06:15] VITALS: BP 138/75; PULSE 78; RESP 18; O2SAT 97
[2016-11-17] MEDS: MULTIVITAMIN INJ 10 ML, FOLIC ACID INJ 1 MG in SODIUM CHLORID 0.9% 500 ML INJ 500 ML IV SCH (06:28)
[2016-11-17 07:42] VITALS: BP 148/75; PULSE 64; RESP 18; TEMP 99.1; O2SAT 94
[2016-11-17 08:11] LABS: AUTOMATED NEUTROPHIL # 2.9 TH/MM3 (1.8-7.7); BASOPHIL # 0.1 TH/MM3 (0-0.2); BASOPHIL % 1.1 % (0.0-2.0); EOSINOPHIL # 0.4 TH/MM3 (0-0.4); EOSINOPHIL % 7.7 % (0.0-4.0); HEMATOCRIT 29.9 % (39.0-51.0); HEMO FLAGS DIFF FINAL; LYMPHOCYTE # 1.7 TH/MM3 (1.0-4.8); MEAN CORPUSCULAR HEMOGLOBIN 32.6 PG (27.0-34.0); MONO % 10.8 % (0.0-8.0); NEUT % 50.4 % (16.0-70.0); PLATELET COUNT 258 TH/MM3 (150-450); RED BLOOD COUNT 3.12 MIL/MM3 (4.50-5.90); RED CELL DISTRIBUTION WIDTH 15.3 % (11.6-17.2); WHITE BLOOD COUNT 5.7 TH/MM3 (4.0-11.0)
[2016-11-17 08:55] LABS: ALKALINE PHOSPHATASE 141 U/L (45-117); ALT (GPT) 58 U/L (12-78); ANION GAP 7 MEQ/L (5-15); AST (GOT) 95 U/L (15-37); BICARBONATE 27.6 MEQ/L (21.0-32.0); BLOOD UREA NITROGEN 6 MG/DL (7-18); CHLORIDE 107 MEQ/L (98-107); GLOMERULAR FILTRATION RATE 87 ML/MIN (>89); POTASSIUM 3.1 MEQ/L (3.5-5.1); SODIUM (NA) 142 MEQ/L (136-145); TOTAL BILIRUBIN ADULT 0.6 MG/DL (0.2-1.0)
[2016-11-17] MEDS: SODIUM CHLORIDE 0.9% FLUSH 10 ML FLUSH IV FLUSH SCH (09:00)
--- NOTE | 2016-11-17 10:19 | HHI.PR ---
Subjective Remarks Follow up for cholecystitis. The patient feels much better again today. Denies any abdominal pain, nausea/vomiting, or diarrhea/constipation. Tolerated oral intake. He adamantly wants to go home, has an outpatient appt today at 2pm. Objective Vitals Vital Signs Date Time Temp Pulse Resp B/P Pulse Ox O2 Delivery O2 Flow Rate FiO2 11/17/16 07:42 99.1 64 18 148/75 94 11/17/16 06:15 78 18 138/75 97 11/16/16 20:02 97.8 66 18 136/72 97 11/16/16 15:34 96.4 68 18 135/77 97 11/16/16 11:32 95.8 66 17 139/70 98 I/O 11/16/16 11/16/16 11/16/16 11/17/16 11/17/16 11/17/16 07:00 15:00 23:00 07:00 15:00 23:00 Output Total 200 ml 300 ml Balance -200 ml -300 ml Output Urine Total 200 ml 300 ml # Voids 2 # Bowel Movements 1 Result Diagram: 11/17/16 0615 11/17/16 0615 Imaging Last Impressions Gall Bladder Ultrasound 11/16/16 0209 Signed Impressions: Service Date/Time: Wednesday, November 16, 2016 02:44 - CONCLUSION: 1. Small amount sludge involving the gallbladder. There is a rounded echogenic structure either related to a noncalcified stone or sludgeball also noted. No gallbladder wall thickening or pericholecystic fluid. Nicola Steele Jr., MD Chest X-Ray 11/16/16 0147 Signed Impressions: Service Date/Time: Wednesday, November 16, 2016 01:44 - CONCLUSION: Normal examination. Nicola Steele Jr., MD Abdomen/Pelvis CT 11/16/16 0147 Signed Impressions: Service Date/Time: Wednesday, November 16, 2016 03:11 - CONCLUSION: 1. No acute abnormality. 2. Small gallstone versus gallbladder sludge. 3. Trace amount of free fluid deep within the pelvis. 4. Scattered colonic diverticuli without acute inflammation. 5. Mild thickening of urinary bladder wall. This likely relates to trabeculation from a component of bladder outlet obstruction. Nicola Steele Jr., MD Cholangiopancreatography MRI 11/16/16 0000 Signed Impressions: Service Date/Time: Wednesday, November 16, 2016 10:01 - CONCLUSION: 1. There is thickening of the gallbladder wall with pericholecystic fluid suggesting cholecystitis. There are small gallstones in the dependent portion of the gallbladder. This would suggest possible cholecystitis. 2. The intrahepatic ducts, proper hepatic ducts and common bile duct are normal in caliber. Wong Tesfaye MD Objective Remarks GENERAL: Well-nourished, well-developed pleasant elderly male patient in [facility]. SKIN: Warm and dry. No rash. HEENT: Normocephalic. Atraumatic. Pupils equal and round. No scleral icterus. No injection or drainage. Mucous membranes pink and moist. NECK: Supple. Trachea midline. CARDIOVASCULAR: Regular rate and rhythm. S1, S2 noted. No murmur appreciated. RESPIRATORY: No accessory muscle use. Clear to auscultation. Breath sounds equal bilaterally. GASTROINTESTINAL: Abdomen soft, non-tender, nondistended. Normoactive bowel sounds x4. MUSCULOSKELETAL: No obvious deformities. Extremities without clubbing, cyanosis , or edema. NEUROLOGICAL: Awake and alert. No obvious cranial nerve deficits. Motor grossly within normal limits. Normal speech. PSYCHIATRIC: Appropriate mood and affect; insight and judgment normal. Urinary Catheter: No Vascular Central Line Catheter: No A/P Problem List: (1) Intractable abdominal pain ICD Code: R10.9 Status: Acute (2) Intractable nausea and vomiting ICD Code: R11.2 Status: Acute (3) Gallbladder sludge ICD Code: K82.8 Status: Acute (4) Elevated LFTs ICD Code: R94.5 Status: Acute (5) COPD (chronic obstructive pulmonary disease) ICD Code: J44.9 Status: Acute (6) Alcohol dependence, daily use ICD Code: F10.20 Status: Acute (7) Tobacco abuse ICD Code: Z72.0 Status: Acute Assessment and Plan 76-year-old male with a PMH of Anxiety, HTN, COPD, Tobacco Abuse and Daily Alcohol Use who presented to the ER with complaints of RUQ pain x2 days with associated nausea and vomiting w/ decreased PO intake. Intractable Abd Pain with N/V, Decreased po intake: c/o acute onset of abdominal pain x2 days, CT Abd/Pelvis w/ no acute findings, small gallstone vs sludge, images reviewed by me. U/a negative for UTI. +RUQ tenderness on exam. Continue w/ analgesics/antiemetics, IVF for hydration. Lipase normal. Symptoms resolved. Tolerated oral intake. Gallbladder Sludge, Acute Cholecystitis: Gallbladder US w/ sludge, noncalcified stone vs sludgeball however no wall thickening, images reviewed by me, +Miller's on exam, concern for cholecystitis. Consult Gen Sx for eval. Afebrile, no leukocytosis however elevated neutrophil count. Continued IV Zosyn. MRCP showed thickening of the gallbladder wall with pericholecystic fluid suggesting cholecystitis; small gallstones in the dependent portion of the gallbladder; CBD normal in caliber. Evaluated by gen surg, patient declined cholecystectomy. Discussed with Dr. Dickerson, cleared for discharge on abx, outpatient f/up symptoms recur. Elevated LFTs: new in comparison to labs from 10/07/15, AST 203, ALT 58, ALP 238 , Total Bili 1.8. Possible passed stone. LFTs much improved today. COPD: Chronic Respiratory Failure. Stable. DuoNeb prn. Alcohol Dependence: Drinks 2-3 beers/day, denies withdrawal. Seizure Precautions, MVT/Thiamine/Folate replacement, CIWA as needed for withdrawal. Tobacco Abuse: Counselled. Ativan prn. DVT Prophylaxis: SCD/Teds. Written by Ayanna Pedroza, acting as scribe for Dr. Joshi on 11/17/16 at 10:18. All or portions of this note were transcribed by Ayanna augustin PA . I, Dr. Romain Joshi personally performed the history, physical exam, and medical decision making; and confirmed the accuracy of the information in the transcribed note. Authenticated by Dr. Romain Joshi on 11/18/16 at 00:08. Discharge Planning Discharge patient to home Condition on discharge: Improved Heart Healthy/Low Fat Diet as tolerated Ad Lyyl activity Rx written: Augmentin 875mg po bid x7days Follow-up with primary care physician and surgery Ayanna Pedroza PA-C Nov 17, 2016 10:19 Kiel Joshi DO Nov 18, 2016 00:08
[2016-11-17] MEDS ORDERED: AUGM875T PO (10:24)
--- NOTE | 2016-11-17 10:25 | HHI.DCPOC ---
Discharge Care Plan Diagnosis: (1) Cholecystitis (2) Gallstones (3) Intractable nausea and vomiting (4) Intractable abdominal pain Goals to Promote Your Health * To prevent worsening of your condition and complications * To maintain your health at the optimal level Directions to Meet Your Goals Take your medications as prescribed Follow your dietary instruction Follow activity as directed Keep your appointments as scheduled Take your immunizations and boosters as scheduled If your symptoms worsen call your PCP, if no PCP go to Urgent Care Center or Emergency Room Smoking is Dangerous to Your Health. Avoid second hand smoke Call the 24-hour hour crisis hotline for domestic abuse at Ayanna Pedroza PA-C Nov 17, 2016 10:25 am
[2016-11-17] MEDS: THIAMINE INJ 100 MG in SODIUM CHLORIDE 0.9% INJ 100 ML IV SCH (10:33)
[2016-11-19] MEDS ORDERED: THIAMINE HCL 100 MG TAB PO SCH (09:00)
== END 2016-11-17 11:46 | disposition home or self-care (01) ==
LOC: NEPC 22:13 → NEDA 11-16 04:55 → NEPHCDU 11-16 05:56
PROVIDERS: ADMIT Hospitalist; ATTEND Hospitalist
DX: K81.0 Acute cholecystitis (principal); R79.89 Other specified abnormal findings of blood chemistry; J44.9 Chronic obstructive pulmonary disease, unspecified; K21.9 Gastro-esophageal reflux disease without esophagitis; M54.9 Dorsalgia, unspecified; M19.90 Unspecified osteoarthritis, unspecified site; G89.29 Other chronic pain; F41.9 Anxiety disorder, unspecified; I10 Essential (primary) hypertension; F17.210 Nicotine dependence, cigarettes, uncomplicated; F10.20 Alcohol dependence, uncomplicated; Z88.6 Allergy status to analgesic agent; Z91.018 Allergy to other foods
CPT/HCPCS: 71010; 74177; 74181; 76377; 76705; 80053; 81001; 82948; 83605; 83690; 83735; 83880; 85025; 85610; 85730; 86140; 93005; 96361; 96374; 96375; 99285; C9113; G0378; J1170; J2405; J2543; J3411; J7030; J7040; Q9967

== ENCOUNTER 2016-12-25 11:25 | Emergency (ER) | payer MEDICARE, OTHER ==
[2016-12-25 11:25] VITALS: BP 153/72; PULSE 100; RESP 20; TEMP 98.1; O2SAT 98
[~2016-12-25 11:25] MED LIST changes: +AUGM875T PO; -IBUP-232 PO; -MEDR4PAK PO; -NAPR500 PO; -ROBA750T PO; -[UNRECOGNIZED DRUG - CODE] PO
--- NOTE | 2016-12-25 11:32 | PD ---
Physical Exam Date Seen by Provider: December 25, 2016 Time Seen by Provider: 11:31 Narrative 76 yobm with 3 day h/o llq pain and lump. no n/v/d VSS wating for bed asignment Data Data Last Documented VS Vital Signs Date Time Temp Pulse Resp B/P Pulse Ox O2 Delivery O2 Flow Rate FiO2 12/25/16 11:25 98.1 100 20 153/72 98 Room Air [facility] Medical Record Reviewed: No Supervised Visit with CHAVO: Salinas Prieto December 25, 2016 11:32
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
[2016-12-25] MEDS ORDERED: SODIUM CHLORIDE 0.9% FLUSH 10 ML FLUSH IV FLUSH PRN (12:30)
[2016-12-25 13:14] LABS: AUTOMATED NEUTROPHIL # 5.5 TH/MM3 (1.8-7.7); BASOPHIL # 0.1 TH/MM3 (0-0.2); BASOPHIL % 0.6 % (0.0-2.0); EOSINOPHIL # 0.7 TH/MM3 (0-0.4); EOSINOPHIL % 7.7 % (0.0-4.0); HEMATOCRIT 33.8 % (39.0-51.0); HEMO FLAGS DIFF FINAL; LYMPH % 17.9 % (9.0-44.0); LYMPHOCYTE # 1.6 TH/MM3 (1.0-4.8); MEAN CELL VOLUME 97.2 FL (80.0-100.0); MEAN CORPUSCULAR HEMOGLOBIN 32.7 PG (27.0-34.0); MEAN CORPUSCULAR HGB CONC 33.7 % (32.0-36.0); MONO % 12.7 % (0.0-8.0); NEUT % 61.1 % (16.0-70.0); PLATELET COUNT 296 TH/MM3 (150-450); RED BLOOD COUNT 3.48 MIL/MM3 (4.50-5.90); RED CELL DISTRIBUTION WIDTH 14.6 % (11.6-17.2)
[2016-12-25 13:27] LABS: BLOOD, URINE NEG (NEG); COMMENT (UR) CULT NOT INDICATED; CULTURE IF INDICATED CULT NOT INDICATED; GLUCOSE,URINE NEG (NEG); KETONE, URINE 40 mg/dL (NEG); MUCUS URINE FEW /lpf (OCC); NITRITE,URINE NEG (NEG); PH, URINE 5.5 (5.0-8.5); SQUAMOUS EPITHELIAL CELL URINE <1 /hpf (0-5); URINE COLOR YELLOW (YELLW/STRAW)
--- NOTE | 2016-12-25 13:52 | RADRPT ---
EXAM DATE/TIME: 12/25/2016 13:24 [facility] COMPARISON: CT ABDOMEN & PELVIS W/O CONTRAST, October 30, 2013, 4:37. INDICATIONS : Pain in right inguinal area. ORAL CONTRAST: No oral contrast ingested. RADIATION DOSE: 3.86 CTDIvol (mGy) MEDICAL HISTORY : Seizures. Hypertension. GERD SURGICAL HISTORY : ENCOUNTER: Initial ACUITY: 1 day PAIN SCALE: 4/10 LOCATION: Right inguinal TECHNIQUE: Volumetric scanning of the abdomen and pelvis was performed. Using automated exposure control and ad justment of the mA and/or kV according to patient size, radiation dose was kept as low as reasonably achievable to obtain optimal diagnostic quality images. FINDINGS: LOWER LUNGS: The visualized lower lungs are clear. LIVER: Homogeneous density without lesion. There is no dilation of the biliary tree. SPLEEN: Multiple small splenic calcified granulomata are noted. PANCREAS: Within normal limits. KIDNEYS: A nonobstructing calculus in the mid right kidney is again noted. There is no evidence of hydronephro sis or obstructing ureteral calculi. ADRENAL GLANDS: Within normal limits. VASCULAR: There is no aortic aneurysm. BOWEL/MESENTERY: The stomach, small bowel, and colon demonstrate no acute abnormality. There is no free intraperitone al air or fluid. ABDOMINAL WALL: Within normal limits. RETROPERITONEUM: There is no lymphadenopathy. BLADDER: No wall thickening or mass. REPRODUCTIVE: Prostate is moderately enlarged. INGUINAL: There is no lymphadenopathy or hernia. MUSCULOSKELETAL: No acute findings. CONCLUSION: Stable nonobstructing calculus in the mid left kidney. No evidence of hydronephrosis or obstructive uropathy. Enlarged prostate Otherwise stable evaluation without evidence of acute process. Jesse Perrin MD on December 25, 2016 at 13:46 Board Certified Radiologist. This report was verified electronically.
[2016-12-25 13:53] LABS: ALKALINE PHOSPHATASE 75 U/L (45-117); ALT (GPT) 17 U/L (12-78); ANION GAP 13 MEQ/L (5-15); AST (GOT) 31 U/L (15-37); BICARBONATE 23.3 MEQ/L (21.0-32.0); BLOOD UREA NITROGEN 15 MG/DL (7-18); CHLORIDE 97 MEQ/L (98-107); GLOMERULAR FILTRATION RATE 80 ML/MIN (>89); POTASSIUM 4.4 MEQ/L (3.5-5.1); SODIUM (NA) 133 MEQ/L (136-145); TOTAL BILIRUBIN ADULT 0.9 MG/DL (0.2-1.0)
[2016-12-25] MEDS ORDERED: ROBA500T PO (14:41)
== END 2016-12-25 15:14 | disposition home or self-care (01) ==
LOC: NEPD 11:25
DX: S39.011A Strain of muscle, fascia and tendon of abdomen, initial encounter (principal); G89.29 Other chronic pain; M54.5 Low back pain; J44.9 Chronic obstructive pulmonary disease, unspecified; I10 Essential (primary) hypertension; K21.9 Gastro-esophageal reflux disease without esophagitis; F17.210 Nicotine dependence, cigarettes, uncomplicated
CPT/HCPCS: 74176; 80053; 81001; 83690; 85025

== ENCOUNTER 2016-12-28 19:29 | Emergency (ER) | payer MEDICARE, OTHER ==
[~2016-12-28] VITALS: Ht 175.3 cm; Wt 60.0 kg
[~2016-12-28 19:29] MED LIST changes: +ROBA500T PO
[2016-12-28 19:36] VITALS: BP 130/65; PULSE 74; RESP 16; TEMP 99.6; O2SAT 98
--- NOTE | 2016-12-28 20:46 | PD ---
HPI Chief Complaint: Pain: Acute or Chronic Time Seen by Provider: 20:46 Travel History International Travel<30 days: No Contact w/Intl Traveler<30days: No Traveled to known affect area: No History of Present Illness HPI 76 year old male came to the emergency room with history of right groin pain. Patient says this has been going on for past 1 week. He was here in this emergency room on the 12th of this month for the same complain. He had blood test and CAT scan done at that point. They were all within normal limits. Patient was brought in by EMS. His entire right leg hurts and his left upper extremity hurts. He was discharged home on Robaxin. He says he's been taking it but it doesn't help.Vital Signs were relatively stable. I did a bedside oral temperature again and it was 98.5. He says he gets some chills. No history of trauma. No history of nausea vomiting. He has not noticed any lump in that area. [facility] Past Medical History Narrative Medical List of his past medical, surgical, social and family history is reviewed from the nursing note. Arthritis: Yes Asthma: No Atrial Fibrillation: No Blood Disorders: No Anxiety: Yes Depression: No Cancer: No Cardiovascular Problems: No Chemotherapy: No Chest Pain: No Congestive Heart Failure: No COPD: Yes Cerebrovascular Accident: No Coronary Artery Disease: No Diabetes: No Diminished Hearing: No Endocrine: Yes Gastrointestinal Disorders: Yes (GERD) GERD: Yes Genitourinary: No Hypertension: Yes Immune Disorder: No Musculoskeletal: Yes (chronic back pain) Neurologic: No Psychiatric: No Reproductive: No Respiratory: Yes Immunizations Current: Yes Radiation Therapy: No Seizures: Yes (LAST SEIZURE 2002) Sleep Apnea: No Thyroid Disease: No Tetanus Vaccination: > 5 Years Influenza Vaccination: No Past Surgical History Other Surgery: No Social History Alcohol Use: Yes (3-5 BEERS EVERY OTHER DAY PER PATIENT) Tobacco Use: Yes (4-5 CIGS PER DAY) Substance Use: No Allergies-Medications (Allergen,Severity, Reaction): Coded Allergies: Chicken Meat (Verified Allergy, Unknown, 11/16/16) Chicken-Derived Products (Verified Allergy, Unknown, 11/16/16) Aspirin (Verified Adverse Reaction, Intermediate, UPSET STOMACH, 12/28/16) Comments List of his allergies reviewed from the nursing note. Reported Meds & Prescriptions Reported Meds & Active Scripts Active Naprosyn (Naproxen) 500 Mg Tab 500 Mg PO BID Robaxin (Methocarbamol) 500 Mg Tab 500 Mg PO TID PRN Augmentin (Amoxicillin-Clavulanate) 875-125 mg Tab 875 Mg PO BID not for use in CrCl <30 ml/min. Adjust Aluminum Cane/Roun (Device) 1 Mis Mis 1 Ea .ROUTE DIRECTED Reported Omeprazole 20 Mg Tab 20 Mg PO DAILY Multiple Vitamin 1 Tab 1 Tab PO DAILY Lortab (Hydrocodone-Acetaminophen) 5-325 Mg Tab 1 Tab PO Q6H PRN Narrative Medication List of his home medications reviewed from the nursing note. Review of Systems Except as stated in HPI: all other systems reviewed are Neg Physical Exam Narrative GENERAL: Awake, alert, no obvious distress SKIN: Focused skin assessment warm/dry. HEAD: Atraumatic. Normocephalic. EYES: Pupils equal and round. No scleral icterus. No injection or drainage. ENT: No nasal bleeding or discharge. Mucous membranes pink and moist. NECK: Trachea midline. No JVD. CARDIOVASCULAR: Regular rate and rhythm. No murmur appreciated. RESPIRATORY: No accessory muscle use. Clear to auscultation. Breath sounds equal bilaterally. GASTROINTESTINAL: Abdomen soft, non-tender, nondistended. Hepatic and splenic margins not palpable. MUSCULOSKELETAL: No obvious deformities. No clubbing. No cyanosis. No edema. Left upper extremity and right lower extremity pain and decreased range of motion due to the pain. : External inspection within normal limit. No erythema or hernia noticed. NEUROLOGICAL: Awake and alert. No obvious cranial nerve deficits. Motor grossly within normal limits. Normal speech. PSYCHIATRIC: Appropriate mood and affect; insight and judgment normal. Data Data Last Documented VS Vital Signs Date Time Temp Pulse Resp B/P Pulse Ox O2 Delivery O2 Flow Rate FiO2 12/28/16 20:16 16 12/28/16 19:36 99.6 74 130/65 98 Room Air Orders Ketorolac Inj (Toradol Inj) (12/28/16 21:00) [facility] Medical Decision Making Medical Screen Exam Complete: Yes Emergency Medical Condition: Yes Medical Record Reviewed: Yes Differential Diagnosis Arthritis Narrative Course 9:02 PM patient will be given a dose of IM Toradol and discharged home on Naprosyn. I've encouraged him to follow up with his primary care since he does have a primary care as an outpatient. Procedures EKG Prior to Arrival: No Diagnosis Primary Impression: Arthritis Referrals: Primary Care Physician 2 days Additional Instructions: Please return to the ER if the condition worsens or any other new concerns. Otherwise take the medication been prescribed to you as per the direction. Do not take them empty stomach. Med/Other Pt SpecificInfo: Prescription(s) given Scripts Naproxen (Naprosyn)500 Mg [id number] Mg PO BID #20 TAB Ref 0 Prov:Lv Castro MD 12/28/16 Disposition: 01 DISCHARGE HOME Condition: Stable Lv Castro MD December 28, 2016 20:46 Lv Castro MD December 28, 2016 20:46
[2016-12-28] MEDS ORDERED: KETOROLAC TROMETHAMINE 60 MG/2 ML (IM) VIAL IM ONE (21:00)
[2016-12-28] MEDS ORDERED: NAPR500 PO (21:03)
== END 2016-12-28 22:51 | disposition home or self-care (01) ==
LOC: NEPD 19:29
DX: M19.90 Unspecified osteoarthritis, unspecified site (principal); I10 Essential (primary) hypertension; Z72.0 Tobacco use
CPT/HCPCS: 96372; 99283; J1885